=== PATIENT | female | born 1970 | race Two or more races ===

== ENCOUNTER 2019-01-29 22:47 | Emergency (ER) | payer MEDICAID, OTHER ==
[~2019-01-29] VITALS: Ht 157.5 cm; Wt 80.7 kg
[2019-01-29] MEDS ORDERED: KETOROLAC TROMETHAMINE INJ 60 MG/2 ML VIAL IM ONE ×2 (23:26→23:30)
--- NOTE | 2019-01-29 23:33 | NUR ---
pt refusing IM toradal, requesting for PO pain medication for midlower back to sacral pain. Dr. Milan notified.
--- NOTE | 2019-01-29 23:40 | NUR ---
pt sent to CT w/ XR via [facility].
[2019-01-29] MEDS ORDERED: IBUPROFEN 400 MG TABLET ONE (23:54)
--- NOTE | 2019-01-29 23:58 | NUR ---
PO toradol not available. Per verbal order, Dr. Milan, give Motrin 800mg PO. Medicated pt per verbal order.
[2019-01-30] MEDS ORDERED: KETOROLAC TROMETHAMINE 10 MG TABLET PO PRN
--- NOTE | 2019-01-30 00:19 | NUR ---
Dr. Milan at bedside for update on pt status.
--- NOTE | 2019-01-30 00:29 | NUR ---
Pt ambulatory w/ steady gait, resp even & unlabored w/ nad noted. Patient discharged to home in stable condition. Written and verbal after care instructions given. Patient verbalizes understanding of instruction.
[2019-01-30 00:30] VITALS: BP 124/78
[2019-01-30] MEDS ORDERED: IBUPROFEN 400 MG TABLET PO ONE (00:30)
== END 2019-01-30 00:30 | disposition home or self-care (01) ==
LOC: ER 22:52
DX: S32.19XA Other fracture of sacrum, initial encounter for closed fracture (principal); W10.8XXA Fall (on) (from) other stairs and steps, initial encounter; X50.1XXA Overexertion from prolonged static or awkward postures, initial encounter; Y93.01 Activity, walking, marching and hiking; Y92.89 Other specified places as the place of occurrence of the external cause; Y99.8 Other external cause status
CPT/HCPCS: 72131; 73630; 99284; J1885

== ENCOUNTER 2019-07-05 13:56 | Emergency (ER) | payer MEDICAID ==
[~2019-07-05] VITALS: Ht 154.9 cm; Wt 70.3 kg
--- NOTE | 2019-07-05 14:05 | NUR ---
High blood pressure with reported headache this morning
[2019-07-05] MEDS ORDERED: LOSA50TA39 PO (14:13)
[2019-07-05] MEDS ORDERED: ONDANSETRON HCL/PF 4 MG/2 ML VIAL ONE (14:15)
[2019-07-05 14:27] LABS: BASOPHILS # (AUTO) 0.1 /CMM (0.0-0.2); BASOPHILS % (AUTO) 0.7 % (0.0-2.0); EOSINOPHILS % (AUTO) 1.5 % (0.0-6.0); HEMATOCRIT 40 % (33-45); HEMOGLOBIN 13.7 g/dL (11.5-14.8); LYMPHOCYTES # (AUTO) 1.6 /CMM (0.8-4.8); LYMPHOCYTES % (AUTO) 21.6 % (20.0-44.0); MEAN CORPUSCULAR HGB CONC 34 g/dl (31.0-36.0); MEAN CORPUSCULAR VOLUME 90 fL (82-100); MONOCYTES # (AUTO) 0.4 /CMM (0.1-1.30); MONOCYTES % (AUTO) 5.3 % (2.0-12.0); NEUTROPHILS # (AUTO) 5.4 /CMM (1.8-8.9); NEUTROPHILS % (AUTO) 70.9 % (43.0-81.0); PLATELET COUNT (AUTO) 276 /CMM (150-450); RED BLOOD CELL COUNT(AUTO) 4.41 MIL/uL (4.0-5.2); WHITE BLOOD COUNT (AUTO) 7.6 K/uL (4.3-11.0)
[2019-07-05] MEDS ORDERED: ONDANSETRON HCL/PF 4 MG/2 ML VIAL IV ONE (14:30)
[2019-07-05] MEDS ORDERED: IV NS 0.9% 1,000 ML BAG IV ONE (14:30)
--- NOTE | 2019-07-05 14:45 | NUR ---
IV fluids given - and zofran
[2019-07-05 14:59] LABS: CALCIUM, SERUM 9.5 mg/dL (8.5-10.1); CARBON DIOXIDE 25 mmol/L (21-32); CHLORIDE 99 mmol/L (98-107); CREATININE 0.6 mg/dL (0.6-1.3); GLUCOSE 128 mg/dL (74-106); POTASSIUM 3.5 mmol/L (3.5-5.1); SODIUM SERUM 135 mmol/L (136-145); UREA NITROGEN, BLOOD 13 mg/dL (7-18)
[2019-07-05] MEDS ORDERED: KETOROLAC TROMETHAMINE INJ 30 MG/ML VIAL IV ONE (15:00)
[2019-07-05 15:04] LABS: ALANINE AMINOTRANSFERASE 23 U/L (12-78); ALBUMIN 3.6 g/dL (3.4-5.0); ALKALINE PHOSPHATASE 55 U/L (46-116); ASPARTATE AMINOTRANSFERASE 14 U/L (15-37); BILIRUBIN,DIRECT 0.1 mg/dL (0.0-0.2); BILIRUBIN,TOTAL 0.2 mg/dL (0.2-1.0); TOTAL PROTEIN, SERUM 7.8 g/dL (6.4-8.2)
[2019-07-05] MEDS ORDERED: KETOROLAC TROMETHAMINE INJ 30 MG/ML VIAL ONE (15:07)
--- NOTE | 2019-07-05 15:11 | NUR ---
Toradol given as ordered
[2019-07-05 15:37] VITALS: BP 143/78
--- NOTE | 2019-07-05 15:37 | NUR ---
IV removed. Catheter intact and site benign. Pressure and 4x4 applied to site. No bleeding noted.
--- NOTE | 2019-07-05 15:37 | NUR ---
Patient discharged to home in stable condition. Written and verbal after care instructions given. Patient verbalizes understanding of instruction.
== END 2019-07-05 15:38 | disposition home or self-care (01) ==
LOC: ER 13:56
DX: R51 Headache (principal); I10 Essential (primary) hypertension; F41.9 Anxiety disorder, unspecified; R42 Dizziness and giddiness; Z98.890 Other specified postprocedural states
CPT/HCPCS: 36415; 70450; 80048; 80076; 84484; 85025; 93005; 96361; 96374; 96375; 99284; J1885; J2405; J7030